=== PATIENT | male | born 1955 | race Caucasian/White ===

== ENCOUNTER → 2018-08-15 | Outpatient (CLI) | payer MEDICARE, BC ==
[2018-08-15 19:29] LABS: EOS # 0.3 (0.04-0.40); EOS % 2.4 % (0.0-4.0); HEMATOCRIT 45.1 % (42.0-52.0); HEMOGLOBIN 14.6 g/dL (13.5-18.0); LYMPH# 2.3 (1.50-4.00); MEAN CELL VOLUME 87 fl (78-100); MEAN CORPUSCULAR HEMOGLOBIN 28 pg (27-31); MEAN CORPUSCULAR HGB CONC 32 g/dL (33-37); MONO # 0.9 (0.20-0.80); NEU # 8.2 (1.40-6.50); PLATELET COUNT 284 K/mm3 (130-400); RED BLOOD COUNT 5.19 M/mm3 (4.20-5.60); RED CELL DISTRIBUTION WIDTH 13.9 % (11.5-14.5); WHITE BLOOD COUNT 11.7 K/mm3 (4.8-10.8)
[2018-08-15 21:52] LABS: ALBUMIN 3.8 g/dL (3.5-5.0); CALCIUM 8.7 mg/dL (8.4-10.2); TOTAL BILIRUBIN 0.5 mg/dL (0.2-1.3); TOTAL PROTEIN 7.3 g/dL (6.3-8.2)
== END ==
LOC: LAB 16:34
PROVIDERS: Internal Medicine
DX: R73.03 Prediabetes (principal); K56.609 Unspecified intestinal obstruction, unspecified as to partial versus complete obstruction

== ENCOUNTER → 2018-10-24 | Outpatient (CLI) | payer MEDICARE, BC ==
[2018-10-24 11:24] LABS: EOS # 0.1 (0.04-0.40); EOS % 0.7 % (0.0-4.0); HEMOGLOBIN 13.7 g/dL (13.5-18.0); LYMPH# 1.7 (1.50-4.00); MEAN CELL VOLUME 87 fl (78-100); MEAN CORPUSCULAR HEMOGLOBIN 27 pg (27-31); MEAN CORPUSCULAR HGB CONC 31 g/dL (33-37); MONO # 0.6 (0.20-0.80); PLATELET COUNT 323 K/mm3 (130-400); RED BLOOD COUNT 5.05 M/mm3 (4.20-5.60); RED CELL DISTRIBUTION WIDTH 14.5 % (11.5-14.5); WHITE BLOOD COUNT 8.4 K/mm3 (4.8-10.8)
[2018-10-24 11:58] LABS: ALBUMIN 3.5 g/dL (3.5-5.0); CALCIUM 8.5 mg/dL (8.4-10.2); POTASSIUM 3.6 mmol/L (3.6-5.0); TOTAL BILIRUBIN 0.5 mg/dL (0.2-1.3); TOTAL PROTEIN 7.2 g/dL (6.3-8.2)
[2018-10-24 12:48] LABS: ERYTHROCYTE SEDIMENTATION RATE 22 mm/hr (0-20)
== END ==
LOC: LAB 11:04
PROVIDERS: Internal Medicine
DX: S06.9X0A Unspecified intracranial injury without loss of consciousness, initial encounter (principal); K56.2 Volvulus; E78.5 Hyperlipidemia, unspecified; E61.1 Iron deficiency; R73.03 Prediabetes; F41.8 Other specified anxiety disorders

== ENCOUNTER → 2019-02-09 | Outpatient (CLI) | payer MEDICARE, BC ==
[2019-02-09 14:51] LABS: EOS # 0.2 (0.04-0.40); EOS % 2.3 % (0.0-4.0); HEMATOCRIT 43.1 % (42.0-52.0); HEMOGLOBIN 13.6 g/dL (13.5-18.0); MEAN CELL VOLUME 85 fl (78-100); MEAN CORPUSCULAR HEMOGLOBIN 27 pg (27-31); MEAN CORPUSCULAR HGB CONC 32 g/dL (33-37); MEAN PLATELET VOLUME 10.1 fl (7.4-10.4); MONO # 0.5 (0.20-0.80); NEU # 5.3 (1.40-6.50); PLATELET COUNT 236 K/mm3 (130-400)
[2019-02-09 15:02] LABS: ALBUMIN 3.4 g/dL (3.5-5.0); CALCIUM 8.4 mg/dL (8.4-10.2); POTASSIUM 3.6 mmol/L (3.6-5.0)
[2019-02-09 15:45] LABS: TOTAL BILIRUBIN 0.3 mg/dL (0.2-1.3)
[2019-02-09 17:01] LABS: ERYTHROCYTE SEDIMENTATION RATE 20 mm/hr (0-20)
== END ==
LOC: LAB 14:14
PROVIDERS: Internal Medicine
DX: K56.609 Unspecified intestinal obstruction, unspecified as to partial versus complete obstruction (principal); R73.09 Other abnormal glucose; E61.1 Iron deficiency; S06.9X0A Unspecified intracranial injury without loss of consciousness, initial encounter; F41.8 Other specified anxiety disorders

== ENCOUNTER → 2019-10-12 | Outpatient (CLI) | payer MEDICARE, BC ==
[2019-10-12 12:15] LABS: EOS # 0.1 (0.04-0.40); EOS % 1.5 % (0.0-4.0); HEMATOCRIT 44.7 % (42.0-52.0); HEMOGLOBIN 14.4 g/dL (13.5-18.0); LYMPH# 2.2 (1.50-4.00); MEAN CELL VOLUME 87 fl (78-100); MEAN CORPUSCULAR HEMOGLOBIN 28 pg (27-31); MEAN CORPUSCULAR HGB CONC 32 g/dL (33-37); MONO # 0.6 (0.20-0.80); NEU # 6.2 (1.40-6.50); PLATELET COUNT 243 K/mm3 (130-400); RED BLOOD COUNT 5.16 M/mm3 (4.20-5.60); RED CELL DISTRIBUTION WIDTH 13.3 % (11.5-14.5); WHITE BLOOD COUNT 9.1 K/mm3 (4.8-10.8)
[2019-10-12 12:23] LABS: POTASSIUM 4.1 mmol/L (3.5-5.1)
[2019-10-12 12:24] LABS: ALBUMIN 3.4 g/dL (3.4-4.8)
[2019-10-12 12:28] LABS: TOTAL BILIRUBIN 0.3 mg/dL (0.2-1.2)
[2019-10-12 15:11] LABS: ERYTHROCYTE SEDIMENTATION RATE 23 mm/hr (0-20)
== END ==
LOC: LAB 11:52
PROVIDERS: Internal Medicine
DX: Z12.5 Encounter for screening for malignant neoplasm of prostate (principal); S06.36 Traumatic hemorrhage of cerebrum, unspecified; E61.1 Iron deficiency; F41.8 Other specified anxiety disorders; R73.09 Other abnormal glucose; K56.2 Volvulus

== ENCOUNTER → 2021-02-20 | Outpatient (CLI) | payer MEDICARE, BC ==
[~2021-02-20] MED LIST: ALEVE220 M1 PO; AMOXIL500 M1 PO; BACLOFEN10 M1 PO; CLINDAMYCIN 300MG PO; COLACE100 M1 PO; CONSTULOSE10 GM/151 PO; COUGH FORMULA PO; COUGH100 MG/51 PO; CULTURELLE1 EACH PO; DESYREL 100MG100 MG PO; DIALYVITE VIT125 MCG PO; DULCOLAX S10 MG/SUPP REC; ESCITALOPRAM10 MG PO; FEROSUL325 M1 PO; FLOMAX0.4 MG PO; GAS-X EXTRA ST125 MG PO; GEODON 20 MG20 MG PO; GLYCOLAX119 GM PO; GOOD NEIGH1200 MG/15 PO; IPRATROPIUM BROM3 M1 IH; KLONOPIN 0.5MG0.5 MG PO; LEVOFLOXACIN750 MG PO; LINZESS145 MCG PO; LOPRESSOR 225 MG/TAB PO; MULTIPLE VITAMI1 TA1 PO; NORVASC 10MG10 MG PO; NYSTATIN1 EAC2 TOP; OMEPRAZOLE40 MG PO; PHARMASSURE ZIN50 MG PO; PROAIR HFA0.09 MG/AC IH; REFRESH OPTIVE10 ML OU; SENOKOT NATURA8.6 MG PO; TYLENOL 325MG325 MG PO; VITAMIN C500 M6 PO; ZOCOR20 M1 PO; [UNRECOGNIZED DRUG - CODE] PO
[2021-02-20 12:28] LABS: EOS # 0.1 (0.04-0.40); EOS % 1.9 % (0.0-4.0); HEMATOCRIT 44.4 % (42.0-52.0); HEMOGLOBIN 14.5 g/dL (13.5-18.0); LYMPH# 2.2 (1.50-4.00); MEAN CELL VOLUME 88 fl (78-100); MEAN CORPUSCULAR HEMOGLOBIN 29 pg (27-31); MEAN CORPUSCULAR HGB CONC 33 g/dL (33-37); MEAN PLATELET VOLUME 9.8 fl (7.4-10.4); MONO # 0.6 (0.20-0.80); NEU # 4.3 (1.40-6.50); PLATELET COUNT 219 K/mm3 (130-400); RED BLOOD COUNT 5.07 M/mm3 (4.20-5.60); RED CELL DISTRIBUTION WIDTH 12.9 % (11.5-14.5); WHITE BLOOD COUNT 7.3 K/mm3 (4.8-10.8)
[2021-02-20 12:40] LABS: ALBUMIN 3.3 g/dL (3.4-4.8)
[2021-02-20 12:42] LABS: CALCIUM 8.5 mg/dL (8.3-10.5)
[2021-02-20 12:43] LABS: TOTAL PROTEIN 6.9 g/dL (6.2-8.1)
[2021-02-20 12:45] LABS: TOTAL BILIRUBIN 0.3 mg/dL (0.2-1.2)
== END ==
LOC: LAB 12:09 → RAD 12:09
PROVIDERS: Internal Medicine
DX: J90 Pleural effusion, not elsewhere classified (principal); R73.03 Prediabetes

== ENCOUNTER 2021-07-16 14:16 | Emergency (ER) | payer MEDICARE, BC ==
[~2021-07-16] VITALS: Wt 100.0 kg
[2021-07-16 15:07] LABS: BASO # 0.03 (0.02-0.10); EOS # 0.18 (0.04-0.40); EOS % 1.3 % (0.0-4.0); HEMOGLOBIN 13.8 g/dL (13.5-18.0); LYMPH# 2.16 (1.50-4.00); MEAN CELL VOLUME 89 fl (78-100); MEAN CORPUSCULAR HEMOGLOBIN 29 pg (27-31); MEAN CORPUSCULAR HGB CONC 32 g/dL (33-37); MEAN PLATELET VOLUME 9.9 fl (7.4-10.4); MONO # 0.71 (0.20-0.80); NEU # 10.62 (1.40-6.50); PLATELET COUNT 234 K/mm3 (130-400); RED BLOOD COUNT 4.83 M/mm3 (4.20-5.60); WHITE BLOOD COUNT 13.7 K/mm3 (4.8-10.8)
[2021-07-16 15:18] LABS: POTASSIUM 3.6 mmol/L (3.5-5.1)
[2021-07-16 15:22] LABS: TOTAL BILIRUBIN 0.6 mg/dL (0.2-1.2)
[2021-07-16 16:24] LABS: ALBUMIN 3.1 g/dL (3.4-4.8)
[2021-07-16 16:27] LABS: TOTAL PROTEIN 6.7 g/dL (6.2-8.1)
[2021-07-16] MEDS ORDERED: ALEVE220 M1 PO (16:32)
[2021-07-16] MEDS ORDERED: NORVASC 10MG10 MG PO (16:32)
[2021-07-16] MEDS ORDERED: AMOXIL500 M1 PO (16:32)
[2021-07-16] MEDS ORDERED: BACLOFEN10 M1 PO (16:33)
[2021-07-16] MEDS ORDERED: DULCOLAX S10 MG/SUPP REC (16:34)
[2021-07-16] MEDS ORDERED: DIALYVITE VIT125 MCG PO (16:35)
[2021-07-16] MEDS ORDERED: COLACE100 M1 PO (16:35)
[2021-07-16] MEDS ORDERED: ESCITALOPRAM10 MG PO (16:41)
[2021-07-16] MEDS ORDERED: COUGH FORMULA PO (16:41)
[2021-07-16] MEDS ORDERED: FEROSUL325 M1 PO (16:42)
[2021-07-16] MEDS ORDERED: FLOMAX0.4 MG PO (16:42)
[2021-07-16] MEDS ORDERED: GEODON 20 MG20 MG PO ×2 (16:43)
[2021-07-16] MEDS ORDERED: GLYCOLAX119 GM PO (16:44)
[2021-07-16] MEDS ORDERED: COUGH100 MG/51 PO (16:45)
[2021-07-16] MEDS ORDERED: IPRATROPIUM BROM3 M1 IH (16:45)
[2021-07-16] MEDS ORDERED: KLONOPIN 0.5MG0.5 MG PO (16:46)
[2021-07-16] MEDS ORDERED: LINZESS145 MCG PO (16:47)
[2021-07-16] MEDS ORDERED: CONSTULOSE10 GM/151 PO (16:47)
[2021-07-16] MEDS ORDERED: LOPRESSOR 225 MG/TAB PO (16:47)
[2021-07-16] MEDS ORDERED: GOOD NEIGH1200 MG/15 PO (16:47)
[2021-07-16] MEDS ORDERED: NYSTATIN1 EAC2 TOP (16:48)
[2021-07-16] MEDS ORDERED: MULTIPLE VITAMI1 TA1 PO (16:48)
[2021-07-16] MEDS ORDERED: [UNRECOGNIZED DRUG - CODE] PO (16:49)
[2021-07-16] MEDS ORDERED: OMEPRAZOLE40 MG PO (16:49)
[2021-07-16 16:50] VITALS: BP 115/59
[2021-07-16] MEDS ORDERED: PROAIR HFA0.09 MG/AC IH (16:50)
[2021-07-16] MEDS ORDERED: REFRESH OPTIVE10 ML OU (16:51)
[2021-07-16] MEDS ORDERED: SENOKOT NATURA8.6 MG PO (16:51)
[2021-07-16] MEDS ORDERED: DESYREL 100MG100 MG PO (16:52)
[2021-07-16] MEDS ORDERED: GAS-X EXTRA ST125 MG PO (16:52)
[2021-07-16] MEDS ORDERED: PHARMASSURE ZIN50 MG PO (16:53)
[2021-07-16] MEDS ORDERED: TYLENOL 325MG325 MG PO (16:53)
[2021-07-16] MEDS ORDERED: ZOCOR20 M1 PO (16:53)
[2021-07-16] MEDS ORDERED: VITAMIN C500 M6 PO (16:53)
[2021-07-16 17:10] LABS: URINE APPEARANCE HAZY; URINE BILIRUBIN NEGATIVE (NEGATIVE); URINE BLOOD 250 ery/uL (NEGATIVE); URINE COLOR YELLOW; URINE GLUCOSE NEGATIVE (NEGATIVE); URINE KETONE NEGATIVE (NEGATIVE); URINE LEUKOCYTE ESTERASE 2+ (NEGATIVE); URINE NITRATE NEGATIVE (NEGATIVE); URINE PROTEIN(semi-quant) TRACE mg/dL (NEGATIVE); URINE UROBILINOGEN 1 mg/dL (NORMAL); URINE WBC >50 /hpf (0-3)
== END 2021-07-16 17:02 | disposition other institution (70) ==
LOC: ED 14:16
PROVIDERS: Physician Assistant
DX: R13.10 Dysphagia, unspecified (principal); J18.1 Lobar pneumonia, unspecified organism; N39.0 Urinary tract infection, site not specified; D72.829 Elevated white blood cell count, unspecified; I10 Essential (primary) hypertension; E11.9 Type 2 diabetes mellitus without complications; F32.9 Major depressive disorder, single episode, unspecified; G89.29 Other chronic pain; M54.9 Dorsalgia, unspecified; Z87.820 Personal history of traumatic brain injury; Z79.899 Other long term (current) drug therapy

== ENCOUNTER 2021-07-16 16:28 | Inpatient (IN) | payer MEDICARE, BC ==
[~2021-07-16] VITALS: Ht 182.9 cm; Wt 98.4 kg
[2021-07-16] MEDS ORDERED: AMOXIL500 M1 PO (16:32)
[2021-07-16] MEDS ORDERED: ALEVE220 M1 PO (16:32)
[2021-07-16] MEDS ORDERED: NORVASC 10MG10 MG PO (16:32)
[2021-07-16] MEDS ORDERED: BACLOFEN10 M1 PO (16:33)
[2021-07-16] MEDS ORDERED: DULCOLAX S10 MG/SUPP REC (16:34)
[2021-07-16] MEDS ORDERED: DIALYVITE VIT125 MCG PO (16:35)
[2021-07-16] MEDS ORDERED: COLACE100 M1 PO (16:35)
[2021-07-16] MEDS ORDERED: ESCITALOPRAM10 MG PO (16:41)
[2021-07-16] MEDS ORDERED: COUGH FORMULA PO (16:41)
[2021-07-16] MEDS ORDERED: FEROSUL325 M1 PO (16:42)
[2021-07-16] MEDS ORDERED: FLOMAX0.4 MG PO (16:42)
[2021-07-16] MEDS ORDERED: GEODON 20 MG20 MG PO ×2 (16:43)
[2021-07-16] MEDS ORDERED: GLYCOLAX119 GM PO (16:44)
[2021-07-16] MEDS ORDERED: IPRATROPIUM BROM3 M1 IH (16:45)
[2021-07-16] MEDS ORDERED: COUGH100 MG/51 PO (16:45)
[2021-07-16] MEDS ORDERED: KLONOPIN 0.5MG0.5 MG PO (16:46)
[2021-07-16] MEDS ORDERED: CONSTULOSE10 GM/151 PO (16:47)
[2021-07-16] MEDS ORDERED: GOOD NEIGH1200 MG/15 PO (16:47)
[2021-07-16] MEDS ORDERED: LOPRESSOR 225 MG/TAB PO (16:47)
[2021-07-16] MEDS ORDERED: LINZESS145 MCG PO (16:47)
[2021-07-16] MEDS ORDERED: NYSTATIN1 EAC2 TOP (16:48)
[2021-07-16] MEDS ORDERED: MULTIPLE VITAMI1 TA1 PO (16:48)
[2021-07-16] MEDS ORDERED: [UNRECOGNIZED DRUG - CODE] PO (16:49)
[2021-07-16] MEDS ORDERED: OMEPRAZOLE40 MG PO (16:49)
[2021-07-16] MEDS ORDERED: PROAIR HFA0.09 MG/AC IH (16:50)
[2021-07-16] MEDS ORDERED: REFRESH OPTIVE10 ML OU (16:51)
[2021-07-16] MEDS ORDERED: SENOKOT NATURA8.6 MG PO (16:51)
[2021-07-16] MEDS ORDERED: GAS-X EXTRA ST125 MG PO (16:52)
[2021-07-16] MEDS ORDERED: DESYREL 100MG100 MG PO (16:52)
[2021-07-16] MEDS ORDERED: PHARMASSURE ZIN50 MG PO (16:53)
[2021-07-16] MEDS ORDERED: ZOCOR20 M1 PO (16:53)
[2021-07-16] MEDS ORDERED: TYLENOL 325MG325 MG PO (16:53)
[2021-07-16] MEDS ORDERED: VITAMIN C500 M6 PO (16:53)
--- NOTE | 2021-07-16 17:05 | NUR ---
TRANSPORT TO ROOM 206 PER W/C FOR ACUTE ADMIT.
--- NOTE | 2021-07-16 18:20 | NUR ---
ADMISSION ASSESSMENT COMPLETE. [facility] FAXED COPY OF NEGATIVE COVID TEST FROM TODAY; IT IS PLACED IN CHART. DAD PRESENT AND HELPS TO INTERPRET FOR PATIENT, WHO HAS IMPAIRED SPEECH S/P TBI IN 1996. FULL LIFT UTILIZED TO TRANSFER FROM W/C TO BED. CONDOM CATH REMOVED AND DRY BRIEF APPLIED. SACRUM IS PINK, BLANCHES SLOWLY. MOISTURE BARRIER CREAM PRESENT AND VERY THICK. THERE ARE SOME AREAS OF SKIN THAT APPEAR EXCORIATED.
--- NOTE | 2021-07-16 19:00 | NUR ---
REPORT RECEIVED FROM HUNTER ROBLES.
--- NOTE | 2021-07-16 19:14 | NUR ---
REPORT PROVIDED TO JEFRY NOEL.
--- NOTE | 2021-07-16 21:00 | NUR ---
PATIENT PLEASENT AND COOPERATIVE WITH CARES. CONDOM CATH REAPPLIED. PATIET SACRAM REDDENED WITH AREAS OF EXORIATION; COVERD WITH THICK LAYER OF BARRIER CREAM. CONTACTED HUNTER AVILA NURSE AT [facility] TO VERIFY HOW MEDICATIONS ARE TAKEN. NURSE STATES MEDICATIONS ARE TAKEN WHOLE, 3 PILLS AT A TIME GIVEN BY SPOON. PATIENT CAN HOLD CUP IN LEFT HAND TO SWALLOW PILLS. PATIENT IS ABLE TO SPELL WORDS IF HE CANNOT BE UNDERSTOOD. NURSE STATES LAST BM ON 07/15/21. PATIENT CURRENTLY RESTING IN BED WITH EYES CLOSED, HEELS FLOATED. BED ALARM ON; CALL LIGHT WITHIN REACH.
--- NOTE | 2021-07-16 21:10 | NUR ---
PATIENT IS A RESIDENT OF PAULINO ARAGON AT [facility]. PHONE NUMBER [phone]
[2021-07-16 22:08] VITALS: BP 119/74
--- NOTE | 2021-07-16 23:00 | NUR ---
Report received from Chapin NOEL. Patient rests with eyes closed. No signs of pain or distress. IVF infusing NS at 83 ML/HR. Site patent. Bed alarm on. Call light in reach.
--- NOTE | 2021-07-17 00:19 | NUR ---
Oxygen level noted to be 83% on RA. Sleeping. Oxygen applied at 2L/NC.
--- NOTE | 2021-07-17 00:36 | NUR ---
Oxygen level rechecked. 93% on 2L/NC. P 61. Respirations even and non-labored at 18
[2021-07-17 01:18] VITALS: BP 106/69
[2021-07-17 05:43] VITALS: BP 117/76
--- NOTE | 2021-07-17 05:48 | NUR ---
Dad calls to check on patient, will be over after he has breakfast to see him. Patient has rested well all shift. Denies pain.
--- NOTE | 2021-07-17 07:00 | NUR ---
Report recieved from HUNTER Morales. Pt resting in bed.
--- NOTE | 2021-07-17 07:03 | NUR ---
Report to Ambar HARRISON.
[2021-07-17 07:35] LABS: BASO # 0.01 (0.02-0.10); EOS # 0.17 (0.04-0.40); EOS % 1.6 % (0.0-4.0); LYMPH# 3.05 (1.50-4.00); MEAN CELL VOLUME 91 fl (78-100); MEAN CORPUSCULAR HEMOGLOBIN 29 pg (27-31); MEAN CORPUSCULAR HGB CONC 32 g/dL (33-37); MEAN PLATELET VOLUME 9.8 fl (7.4-10.4); MONO # 0.56 (0.20-0.80); NEU # 6.73 (1.40-6.50); PLATELET COUNT 225 K/mm3 (130-400); RED BLOOD COUNT 4.52 M/mm3 (4.20-5.60); WHITE BLOOD COUNT 10.6 K/mm3 (4.8-10.8)
[2021-07-17 08:01] LABS: POTASSIUM 3.9 mmol/L (3.5-5.1)
[2021-07-17 08:02] LABS: CALCIUM 8.9 mg/dL (8.3-10.5)
--- NOTE | 2021-07-17 09:30 | NUR ---
Pt colostomy bag changed, and condom cath put back on. Pt tolerated well.
--- NOTE | 2021-07-17 09:38 | NUR ---
Spoke with Jacki from [facility]. She states that they use a sit to stand at [facility]. But that since he is out of his element and not feeling well that he may need the ariel lift. When clinically stable to discharge: Please call Xuan at [facility] [phone] and fax clinicals to [phone].
[2021-07-17 10:59] VITALS: BP 118/75
--- NOTE | 2021-07-17 12:00 | NUR ---
Pt slowly taken off of 02 at 1200 pt completely off O2 [id number]: 94%.
--- NOTE | 2021-07-17 12:00 | NUR ---
Pt up for lunch using [id number], pt tolerated well. Father at bedside, Dr. Brand in to see pt about 1215. Pt denies pain. Will continue to monitor.
[2021-07-17 13:41] VITALS: BP 115/72
--- NOTE | 2021-07-17 15:50 | NUR ---
Called David spoke with Xuan. [phone] recommends [facility] thick liquids. Faxed ST notes to Xuan along with updated progress notes and OT notes. Called Mad[facility] Santamaria and advised them of the diet changes. [phone]
[2021-07-17 17:49] VITALS: BP 103/62
--- NOTE | 2021-07-17 18:45 | NUR ---
Report received from Ambar Root RN. Pt resting in bed, awake and a/o. Bed alarm set and call light with in reach.
[2021-07-17 22:09] VITALS: BP 113/70
--- NOTE | 2021-07-17 23:00 | NUR ---
Report given to Carmen Huose LPN. Pt resting in bed, eyes closed and even respirations. Bed alarm set. Call light with in reach.
--- NOTE | 2021-07-18 00:10 | NUR ---
Report received from Que HARRISON. Patient rests in bed with eyes closed. Respirations even and non-labored. No signs of pain or distress.
--- NOTE | 2021-07-18 00:55 | NUR ---
Spot check SAO2 while sleeping and noted to be 91-92% on RA.
--- NOTE | 2021-07-18 01:00 | NUR ---
Nebulizer tx completed. Patient observed with bowel movement all over torso, arms legs. Extra large soft BM. Patient provided with bed bath, change of linens, gown. New colostomy wafer and pouch applied. New TELE wires applied. Buttocks reddened and excoriated, with scant bleeding. Cleansed and coccyx mepilex applied. Repositioned. Refused to lay on his side. INT reddened to [facility]. D/C'd at this time.
[2021-07-18 01:55] VITALS: BP 119/74
[2021-07-18 05:41] VITALS: BP 132/79
--- NOTE | 2021-07-18 07:02 | NUR ---
Report to Kassidy HARRISON.
--- NOTE | 2021-07-18 07:20 | NUR ---
REPORT RECEIVED FROM FARIDEH BAUTISTA LPN
--- NOTE | 2021-07-18 07:45 | NUR ---
Boris DEWITT PA IN TO SEE PATIENT AT THIS TIME.
--- NOTE | 2021-07-18 07:50 | NUR ---
patient's shift assessment complete patient alert and oriented x4. reports having pain to "colostomy site" undable to rate pain numerically. denies any need for intervention. patient's speech slurred and difficult to understand due to previous tbi but is appropriate. patient's colostomy bag full of gas very small amount of dark brown/green colored stool in bag. patient's ostomy burped at this time. stoma red and moist. patient has condom cather. condom has almost come completely off. urine leaaking around cather. brief soiled. patient's cather reapplied.paolo care provided. patient's mepilex foam to coccyx coming off and is soiled. removed mepilex. patient's coccyx and buttocks very excoriated and raw with some abrasions small amount of bleeding to area. dessenex powder applied. +2 edema to bilat lower ext. fine crackles auscultated in right lower lobe. patient dnies shortness of breath or difficulties breathing. patient assisted up to wheelchair for breakfast. requires person assist with sit to stand lift. patient's call light within reach. color dark red/purple.
[2021-07-18 08:25] LABS: BASO # 0.02 (0.02-0.10); EOS # 0.15 (0.04-0.40); EOS % 1.6 % (0.0-4.0); HEMOGLOBIN 13.5 g/dL (13.5-18.0); LYMPH# 1.89 (1.50-4.00); MEAN CELL VOLUME 91 fl (78-100); MEAN CORPUSCULAR HEMOGLOBIN 29 pg (27-31); MEAN CORPUSCULAR HGB CONC 31 g/dL (33-37); MEAN PLATELET VOLUME 9.6 fl (7.4-10.4); NEU # 6.56 (1.40-6.50); PLATELET COUNT 255 K/mm3 (130-400); RED BLOOD COUNT 4.74 M/mm3 (4.20-5.60); RED CELL DISTRIBUTION WIDTH 12.9 % (11.5-14.5); WHITE BLOOD COUNT 9.2 K/mm3 (4.8-10.8)
--- NOTE | 2021-07-18 08:30 | NUR ---
urine and blood culture preliminary reports given to carson cheung
[2021-07-18 08:39] LABS: POTASSIUM 4.1 mmol/L (3.5-5.1)
[2021-07-18 08:40] LABS: CALCIUM 9.2 mg/dL (8.3-10.5)
[2021-07-18 09:16] VITALS: BP 125/69
--- NOTE | 2021-07-18 11:55 | NUR ---
preliminary blood culture report came back reporting probably contaminant. report given to carson cheung
[2021-07-18] MEDS ORDERED: CLINDAMYCIN 300MG PO (12:02)
[2021-07-18] MEDS ORDERED: LEVOFLOXACIN750 MG PO (12:03)
[2021-07-18] MEDS ORDERED: CULTURELLE1 EACH PO (12:05)
--- NOTE | 2021-07-18 12:30 | NUR ---
after several attempts to speak with nurse caring for patient at [facility] was able to speak with a nurse from [facility] about setting up transportation for patient to go back to [facility]. nurse reports that the nurse needed to be contacted is meir and she spoke with meir and transportation can not be set up because facility was not aware critical access hospital patient was going to be discharging today and [facility]. instructed to fax records and then call meir about transportation.
--- NOTE | 2021-07-18 12:52 | NUR ---
records faxed to je[facility] per instructions.contacted [facility]. report given and told that shruthi's covid swab was negative. denies any questions for the nurse at this time. asked about transport per meir they will contact us with time.
[2021-07-18 13:25] VITALS: BP 125/69
[2021-07-18 13:47] VITALS: BP 128/72
--- NOTE | 2021-07-18 14:15 | NUR ---
patient left facility via wheelchair to [employer] transportation vehicle. accompanied by this nurse and patient's father. personal belongings and discharge paperwork sent with patient's dad.
--- NOTE | 2021-07-20 08:30 | NUR ---
urine and blood culture preliminary reports given to carson cheung
== END 2021-07-18 14:15 | DRG 689 ==
LOC: MED/SURG 16:28
PROVIDERS: ADMIT Physician Assistant
DX: N39.0 Urinary tract infection, site not specified (principal); J18.9 Pneumonia, unspecified organism; R13.10 Dysphagia, unspecified; I10 Essential (primary) hypertension; E11.9 Type 2 diabetes mellitus without complications; D50.9 Iron deficiency anemia, unspecified; R32 Unspecified urinary incontinence; B96.1 Klebsiella pneumoniae [K. pneumoniae] as the cause of diseases classified elsewhere; Z20.822 Contact with and (suspected) exposure to COVID-19; K27.9 Peptic ulcer, site unspecified, unspecified as acute or chronic, without hemorrhage or perforation; D72.829 Elevated white blood cell count, unspecified; G89.29 Other chronic pain; M54.9 Dorsalgia, unspecified; F32.9 Major depressive disorder, single episode, unspecified; Z88.1 Allergy status to other antibiotic agents
CPT/HCPCS: J1956; J3490; J7030

== ENCOUNTER → 2021-07-24 | Outpatient (CLI) | payer MEDICARE, BC ==
[2021-07-24 11:12] LABS: BASO # 0.04 (0.02-0.10); EOS # 0.16 (0.04-0.40); EOS % 1.5 % (0.0-4.0); HEMATOCRIT 47.3 % (42.0-52.0); HEMOGLOBIN 15.3 g/dL (13.5-18.0); LYMPH# 2.25 (1.50-4.00); MEAN CELL VOLUME 88 fl (78-100); MEAN CORPUSCULAR HEMOGLOBIN 29 pg (27-31); MEAN CORPUSCULAR HGB CONC 32 g/dL (33-37); MEAN PLATELET VOLUME 9.5 fl (7.4-10.4); MONO # 0.55 (0.20-0.80); NEU # 7.53 (1.40-6.50); PLATELET COUNT 258 K/mm3 (130-400); RED BLOOD COUNT 5.37 M/mm3 (4.20-5.60); RED CELL DISTRIBUTION WIDTH 12.6 % (11.5-14.5); WHITE BLOOD COUNT 10.6 K/mm3 (4.8-10.8)
[2021-07-24 11:13] LABS: ALBUMIN 3.3 g/dL (3.4-4.8)
[2021-07-24 11:14] LABS: CALCIUM 9.2 mg/dL (8.3-10.5)
[2021-07-24 11:16] LABS: TOTAL PROTEIN 7.2 g/dL (6.2-8.1)
[2021-07-24 11:17] LABS: TOTAL BILIRUBIN 0.4 mg/dL (0.2-1.2)
== END ==
LOC: LAB 09:15
PROVIDERS: Internal Medicine
DX: J69.0 Pneumonitis due to inhalation of food and vomit (principal); N39.0 Urinary tract infection, site not specified; K90.9 Intestinal malabsorption, unspecified; K58.9 Irritable bowel syndrome, unspecified; R73.03 Prediabetes

== ENCOUNTER → 2021-11-27 | Outpatient (CLI) | payer MEDICARE, BC ==
[2021-11-27 12:15] LABS: BASO # 0.04 K/mm3 (0.02-0.10); EOS # 0.12 K/mm3 (0.04-0.40); EOS % 1.2 % (0.0-4.0); HEMATOCRIT 49.1 % (42.0-52.0); HEMOGLOBIN 15.6 g/dL (13.5-18.0); LYMPH# 1.95 K/mm3 (1.50-4.00); MEAN CELL VOLUME 89 fl (78-100); MEAN CORPUSCULAR HEMOGLOBIN 28 pg (27-31); MEAN CORPUSCULAR HGB CONC 32 g/dL (33-37); MEAN PLATELET VOLUME 9.7 fl (7.4-10.4); MONO # 0.49 K/mm3 (0.20-0.80); NEU # 7.29 K/mm3 (1.40-6.50); PLATELET COUNT 213 K/mm3 (130-400); RED BLOOD COUNT 5.53 M/mm3 (4.20-5.60); RED CELL DISTRIBUTION WIDTH 12.5 % (11.5-14.5); WHITE BLOOD COUNT 9.9 K/mm3 (4.8-10.8)
[2021-11-27 12:19] LABS: POTASSIUM 4.1 mmol/L (3.5-5.1)
[2021-11-27 12:20] LABS: ALBUMIN 3.4 g/dL (3.4-4.8)
[2021-11-27 12:21] LABS: CALCIUM 9.2 mg/dL (8.3-10.5)
[2021-11-27 12:22] LABS: TOTAL PROTEIN 7.2 g/dL (6.2-8.1)
[2021-11-27 13:10] LABS: TOTAL BILIRUBIN 0.4 mg/dL (0.2-1.2)
== END ==
LOC: LAB 11:40
PROVIDERS: Internal Medicine
DX: Z12.5 Encounter for screening for malignant neoplasm of prostate (principal); K90.9 Intestinal malabsorption, unspecified; R73.03 Prediabetes; E78.2 Mixed hyperlipidemia

== ENCOUNTER → 2022-02-26 | Outpatient (CLI) | payer MEDICARE, BC ==
[2022-02-26 11:43] LABS: BASO # 0.03 K/mm3 (0.02-0.10); EOS # 0.11 K/mm3 (0.04-0.40); HEMOGLOBIN 15.5 g/dL (13.5-18.0); MEAN CELL VOLUME 88 fl (78-100); MEAN CORPUSCULAR HEMOGLOBIN 28 pg (27-31); MEAN CORPUSCULAR HGB CONC 32 g/dL (33-37); MEAN PLATELET VOLUME 9.7 fl (7.4-10.4); MONO # 0.51 K/mm3 (0.20-0.80); NEU # 8.35 K/mm3 (1.40-6.50); PLATELET COUNT 215 K/mm3 (130-400); RED BLOOD COUNT 5.48 M/mm3 (4.20-5.60); RED CELL DISTRIBUTION WIDTH 12.6 % (11.5-14.5); WHITE BLOOD COUNT 10.9 K/mm3 (4.8-10.8)
[2022-02-26 11:52] LABS: ALBUMIN 3.5 g/dL (3.4-4.8); POTASSIUM 3.6 mmol/L (3.5-5.1)
[2022-02-26 11:56] LABS: TOTAL BILIRUBIN 0.4 mg/dL (0.2-1.2)
[2022-02-26 13:51] LABS: ERYTHROCYTE SEDIMENTATION RATE 27 mm/hr (0-20)
== END ==
LOC: LAB 11:25
PROVIDERS: Internal Medicine
DX: K90.9 Intestinal malabsorption, unspecified (principal); E78.2 Mixed hyperlipidemia; J69.0 Pneumonitis due to inhalation of food and vomit; R41.841 Cognitive communication deficit; R73.03 Prediabetes

== ENCOUNTER → 2022-06-18 | Outpatient (CLI) | payer MEDICARE, BC ==
[2022-06-18 11:42] LABS: BASO # 0.03 K/mm3 (0.02-0.10); EOS # 0.18 K/mm3 (0.04-0.40); HEMATOCRIT 46.2 % (42.0-52.0); HEMOGLOBIN 14.7 g/dL (13.5-18.0); LYMPH# 2.35 K/mm3 (1.50-4.00); MEAN CELL VOLUME 89 fl (78-100); MEAN CORPUSCULAR HEMOGLOBIN 28 pg (27-31); MEAN CORPUSCULAR HGB CONC 32 g/dL (33-37); MEAN PLATELET VOLUME 9.5 fl (7.4-10.4); MONO # 0.53 K/mm3 (0.20-0.80); NEU # 5.75 K/mm3 (1.40-6.50); PLATELET COUNT 209 K/mm3 (130-400); RED BLOOD COUNT 5.21 M/mm3 (4.20-5.60); RED CELL DISTRIBUTION WIDTH 12.8 % (11.5-14.5); WHITE BLOOD COUNT 8.9 K/mm3 (4.8-10.8)
[2022-06-18 11:47] LABS: POTASSIUM 3.8 mmol/L (3.5-5.1)
[2022-06-18 11:48] LABS: ALBUMIN 3.1 g/dL (3.4-4.8); CALCIUM 8.7 mg/dL (8.3-10.5)
[2022-06-18 11:50] LABS: TOTAL PROTEIN 6.8 g/dL (6.2-8.1)
[2022-06-18 11:52] LABS: TOTAL BILIRUBIN 0.5 mg/dL (0.2-1.2)
[2022-06-18 15:04] LABS: ERYTHROCYTE SEDIMENTATION RATE 34 mm/hr (0-20)
== END ==
LOC: LAB 11:12
PROVIDERS: Internal Medicine
DX: J69.0 Pneumonitis due to inhalation of food and vomit (principal); K90.9 Intestinal malabsorption, unspecified; E78.2 Mixed hyperlipidemia; R73.03 Prediabetes; R41.841 Cognitive communication deficit; F41.8 Other specified anxiety disorders

== ENCOUNTER → 2022-12-03 | Outpatient (CLI) | payer MEDICARE, BC ==
[2022-12-03 12:24] LABS: BASO # 0.02 K/mm3 (0.02-0.10); EOS # 0.11 K/mm3 (0.04-0.40); HEMATOCRIT 45.9 % (42.0-52.0); HEMOGLOBIN 14.8 g/dL (13.5-18.0); LYMPH# 1.56 K/mm3 (1.50-4.00); MEAN CELL VOLUME 88 fl (78-100); MEAN CORPUSCULAR HEMOGLOBIN 29 pg (27-31); MEAN CORPUSCULAR HGB CONC 32 g/dL (33-37); NEU # 8.58 K/mm3 (1.40-6.50); PLATELET COUNT 221 K/mm3 (130-400); RED CELL DISTRIBUTION WIDTH 12.2 % (11.5-14.5)
[2022-12-03 12:46] LABS: ALBUMIN 3.2 g/dL (3.4-4.8); POTASSIUM 3.7 mmol/L (3.5-5.1)
[2022-12-03 12:47] LABS: CALCIUM 9.6 mg/dL (8.3-10.5)
[2022-12-03 12:49] LABS: TOTAL PROTEIN 6.9 g/dL (6.2-8.1)
[2022-12-03 12:51] LABS: TOTAL BILIRUBIN 0.5 mg/dL (0.2-1.2)
[2022-12-03 13:52] LABS: ERYTHROCYTE SEDIMENTATION RATE 32 mm/hr (0-20)
== END ==
LOC: LAB 12:02
PROVIDERS: Internal Medicine
DX: K90.9 Intestinal malabsorption, unspecified (principal); J69.0 Pneumonitis due to inhalation of food and vomit; E78.2 Mixed hyperlipidemia; F41.8 Other specified anxiety disorders; R73.03 Prediabetes; R41.841 Cognitive communication deficit

== ENCOUNTER → 2024-02-29 | Outpatient (CLI) | payer MEDICARE, BC | LOC: LAB 12:04 | DX: Z12.5 Encounter for screening for malignant neoplasm of prostate (principal); K90.9 Intestinal malabsorption, unspecified; R73.03 Prediabetes; E78.2 Mixed hyperlipidemia; F41.8 Other specified anxiety disorders ==